=== PATIENT | male | born 1955 | race Two or more races ===

== ENCOUNTER 2017-11-23 08:44 | Emergency (ER) | payer SELFPAY ==
[2017-11-23 09:31] LABS: Basophils # (Auto) 0.1 K/mm3 (0.0-0.1); Basophils % (Auto) 0.8 % (0.0-1.8); Eosinophils # (Auto) 0.1 K/mm3 (0.0-0.4); Hematocrit 37.2 % (35.5-45.6); Hemoglobin 12.2 gm/dl (11.8-15.2); Lymphocytes # (Auto) 1.6 K/mm3 (1.2-5.4); Mean Corpuscular HGB Conc 33 % (32-34); Mean Corpuscular Hemoglobin 30 pg (28-32); Mean Corpuscular Volume 91 fl (84-94); Monocytes # (Auto) 0.6 K/mm3 (0.0-0.8); Monocytes % (Auto) 9.7 % (0.0-7.3); Platelet Count 309 K/mm3 (140-440); Red Blood Count 4.11 M/mm3 (3.65-5.03)
[2017-11-23 09:43] LABS: BUN/Creatinine Ratio 18; Blood Urea Nitrogen 18 mg/dL (9-20); Calcium 9.1 mg/dL (8.4-10.2); Hemolysis Index 9
[2017-11-23] MEDS ORDERED: MILK OF MAGNESIA PO PRN (09:46)
[2017-11-23] MEDS ORDERED: TYLENOL PO PRN (09:46)
[2017-11-23] MEDS ORDERED: ALUM-MAG HYDROX-SIMETH 200-200-20MG/5ML PO PRN (09:46)
--- NOTE | 2017-11-23 09:47 | Emergency Department Report ---
HPI - General Chief Complaint: Psych Time Seen by Provider: 11/23/17 09:00 - HPI HPI: The patient is a 62-year-old male presents for evaluation of mental health. The patient has a history of schizophrenia. The patient was brought in via local law enforcement after exhibiting severe agitation with residents at his living facility. 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 The patient states that he presented to the emergency department to receive an injection of a "clear medication in a syringe." The patient denies fever, headache, unexplained weight loss or weight gain, heat or cold intolerance, skin , hair, or nail changes, neuro deficits, homicidal ideations. ED Past Medical Hx - Past Medical History Hx Psychiatric Treatment: Yes (Schizophrenia) - Surgical History Past Surgical History?: No - Medications Home Medications: Home Medications Medication Instructions Recorded Confirmed Last Taken Type Benztropine [Cogentin] 1 mg PO QID 11/23/17 11/23/17 Unknown History Hydrochlorothiazide [HCTZ] 25 mg PO DAILY 11/23/17 11/23/17 Unknown History amLODIPine [Norvasc] 10 mg PO DAILY 11/23/17 11/23/17 Unknown History risperiDONE [Risperdal] 1 mg PO BID 11/23/17 11/23/17 Unknown History ED Review of Systems ROS: Stated complaint: COMBATIVE/1013 Other details as noted in HPI Constitutional: denies: fever ENT: denies: throat or neck pain Respiratory: denies: cough, shortness of breath Cardiovascular: denies: chest pain Endocrine: denies unexplained weight loss or gain Gastrointestinal: denies: abdominal pain, nausea Genitourinary: denies: dysuria Musculoskeletal: denies: leg swelling Skin: denies: rash Neurological: denies: headache Hematological/Lymphatic: denies: easy bleeding or easy bruising Psych: denies sadness or hopelessness Physical Exam - Physical Exam Vital Signs: Vital Signs 11/23/17 09:09 Temperature 98.4 F Pulse Rate 93 H Respiratory 18 Rate Blood Pressure 153/91 [Right] O2 Sat by Pulse 98 Oximetry Physical Exam: General: well-nourished, well-developed, no acute distress Head: Normocephalic, atraumatic Eyes: normal sclera ENT: Mucous membranes are pale and dry Neck: No neck stiffness, no cervical adenopathy Respiratory: Breath sounds equal bilaterally, no wheezing, rales, or rhonchi Cardio: S1 and S2 present, no murmurs, rubs, gallops, capillary refill is delayed Abdomen: Normoactive bowel sounds, soft abdomen, no tenderness Musc: No pitting edema Skin: No rash Neuro: no facial drooping, normal speech Psych: normal affect, poor insight, patient delusional, speech is tangential and incoherent, patient anxious ED Course Vital Signs 11/23/17 09:09 Temperature 98.4 F Pulse Rate 93 H Respiratory 18 Rate Blood Pressure 153/91 [Right] O2 Sat by Pulse 98 Oximetry ED Medical Decision Making - Lab Data Result diagrams: 11/23/17 09:12 11/23/17 09:12 - Medical Decision Making The patient was seen and examined by myself. The patient is placed on a environmental monitoring technician and continuous pulse ox. On initial evaluation, the patient was found to be in no distress. Labs are obtained. Lab results are grossly unremarkable. The patient is medically clear. Mental health is consulted. Mental health evaluates the patient and agrees that the patient is exhibiting findings consistent with acute psychosis. A 1013 is completed. The patient will be admitted to a psychiatric facility once bed placement is obtained. Critical care attestation.: If time is entered above; I have spent that time in minutes in the direct care of this critically ill patient, excluding procedure time. ED Disposition Clinical Impression: Acute psychosis, Schizophrenia, acute Disposition: [id number] PSY HOSP/PSY UNIT Is pt being admited?: No Does the pt Need Aspirin: No Condition: Stable Referrals: PRIMARY CARE [Primary Care Provider] - 3-5 Days Time of Disposition: 09:46
[2017-11-23 20:22] VITALS: BP 191/95
[2017-11-23] MEDS ORDERED: NORVASC ONE (20:23)
[2017-11-23] MEDS ORDERED: HCTZ PO SCH (21:00)
[2017-11-24] MEDS ORDERED: NORVASC PO SCH (10:00)
== END 2017-11-23 23:14 ==
LOC: ED 08:44 → EEVIPCON 08:44 → ED 23:14
DX: F20.9 Schizophrenia, unspecified (principal); Z79.899 Other long term (current) drug therapy
CPT/HCPCS: 36415; 80048; 85025; 99285; G0480; 80320